=== PATIENT | male | born 1950 | race Caucasian/White ===

== ENCOUNTER 2017-09-13 21:40 | Emergency (ER) | payer MEDICARE, BC ==
[2017-09-13] MEDS ORDERED: CEPHALEXIN 250 MG/5 ML BOTTLE PO ONE (22:13)
[2017-09-13] MEDS ORDERED: LIDOCAINE HCL 1% MDV SOL SC ONE (22:15)
[2017-09-13] MEDS ORDERED: LIDOCAINE HCL 1% MPF SOL ONE (22:23)
[2017-09-13] MEDS ORDERED: CEPHALEXIN 250 MG/5 ML BOTTLE ONE (22:28)
[2017-09-13 23:05] VITALS: PULSE 67
[2017-09-13 23:13] VITALS: BP 120/80; RESP 16; TEMP 96.5; O2SAT 97
== END 2017-09-13 23:18 | disposition home or self-care (01) | DRG 605 ==
LOC: ED 21:40
DX: S61.302A Unspecified open wound of right middle finger with damage to nail, initial encounter (principal); W29.8XXA Contact with other powered hand tools and household machinery, initial encounter
CPT/HCPCS: 73140; 99284; A6232; A6402; J2001

== ENCOUNTER 2017-10-27 22:31 | Emergency (ER) | payer MEDICARE, BC ==
[2017-10-27 22:39] VITALS: RESP 18; TEMP 97.6; O2SAT 98
[2017-10-27] MEDS ORDERED: PROPARACAINE HCL 0.5% OPHTHALMIC SOL OP ONE (22:50)
[2017-10-27] MEDS ORDERED: PROPARACAINE HCL 0.5% OPHTHALMIC SOL ONE (22:54)
[2017-10-27] MEDS ORDERED: PREDNISONE 20 MG TAB PO ONE (23:04)
[2017-10-27] MEDS ORDERED: PREDNISONE 20 MG TAB ONE ×2 (23:12)
[2017-10-28 00:24] VITALS: BP 129/69; PULSE 86
== END 2017-10-27 23:19 | disposition home or self-care (01) | DRG 125 ==
LOC: ED 22:31
DX: H57.8 Other specified disorders of eye and adnexa (principal); R05 Cough; Z77.098 Contact with and (suspected) exposure to other hazardous, chiefly nonmedicinal, chemicals
CPT/HCPCS: 99282; 99283